=== PATIENT | male | born 1970 | race African-American/Black ===

== ENCOUNTER 2017-08-10 12:30 | Emergency (ER) | payer SELFPAY ==
[~2017-08-10] VITALS: Ht 180.3 cm; Wt 93.0 kg
[2017-08-10 12:30] VITALS: BP 133/69
[2017-08-10] MEDS ORDERED: IBUPROFEN 400 MG TABLET PO ONE (14:30)
[2017-08-10] MEDS ORDERED: IBUPROFEN 400 MG TABLET ONE (15:02)
== END 2017-08-10 15:22 | disposition home or self-care (01) ==
LOC: ER 12:34
DX: S80.02XA Contusion of left knee, initial encounter (principal); S49.91XA Unspecified injury of right shoulder and upper arm, initial encounter; M54.6 Pain in thoracic spine; M54.2 Cervicalgia; F10.10 Alcohol abuse, uncomplicated; V43.52XA Car driver injured in collision with other type car in traffic accident, initial encounter; Y93.89 Activity, other specified; Y92.410 Unspecified street and highway as the place of occurrence of the external cause; Y99.8 Other external cause status
CPT/HCPCS: 72040; 72074; 73030; 99284; A4606; Z7610